=== PATIENT | female | born 1985 | race Caucasian/White ===

== ENCOUNTER 2017-07-09 17:26 | Emergency (ER) | END 2017-07-09 23:09 | disposition home or self-care (01) ==

== ENCOUNTER 2017-07-23 11:13 | Emergency (ER) | END 2017-07-23 13:08 | disposition home or self-care (01) ==

== ENCOUNTER 2018-08-26 19:20 | Emergency (ER) | payer MEDICAID, OTHER ==
[~2018-08-26] VITALS: Ht 162.6 cm; Wt 89.0 kg
[~2018-08-26 19:20] MED LIST: ACET325T33 PO; GUAI5SYR2 PO; IBUP-1542 PO; METH500T PO; NAPR-985 PO
[2018-08-26 19:36] VITALS: BP 122/69; PULSE 92; RESP 20; Ht 162.6 cm; Wt 89.0 kg
[2018-08-26] MEDS ORDERED: IBUPROFEN 600 MG TAB PO ONE (21:30)
[2018-08-26] MEDS ORDERED: IBUP-1542 PO (22:46)
--- NOTE | 2018-08-26 23:08 | ERD ---
ER Documentation Chief Complaint Chief Complaint L ankle pain/swelling- fall [place] 5 [place] HPI This is a 33-year-old female presents to the ED complaining of left ankle pain and swelling status post trip and fall at the beach 5 days ago. Patient states pain is worse when bearing weight. She reports ankle swelling. She denies any numbness, Renea, focal weakness. States pain has now started to radiate towards her left knee. No lacerations. No other complaints. ROS All systems reviewed and are negative except as per history of present illness. Medications Home Meds Active Scripts Ibuprofen* (Motrin*) 600 Mg Tab, 600 MG PO Q6H PRN for PAIN AND OR ELEVATED TEMP, #30 TAB Prov:HUBERTIGRNICK DONAHUEC 08/26/18 Guaifenesin-Dextromethorphan* (Robitussin* DM) 100MG/10MG/5ML Syrup, 5 ML PO Q4H PRN for COUGH, #100 ML Prov:VALENTINO MCDOWELL PA-C 07/23/17 Ibuprofen* (Motrin*) 600 Mg Tab, 600 MG PO Q6, #30 TAB Prov:VALENTINO MCDOWELL PA-C 07/23/17 Acetaminophen* (Tylenol*) 325 Mg Tablet, 2 TAB PO Q6 PRN for PAIN AND OR ELEVATED TEMP, #20 TAB Prov:VALENTINO MCDOWELL PA-C 07/23/17 Methocarbamol* (Robaxin*) 500 Mg Tab, 500 MG PO Q6 for 3 Days, #12 TAB Prov:ROYAL,ALONZO 07/09/17 Naproxen* (Naprosyn*) 500 Mg Tablet, 500 MG PO BID PRN for PAIN AND/OR INFLAMMATION for 10 Days, #20 TAB Prov:ROYAL,ALONZO 07/09/17 Allergies Allergies: Coded Allergies: No Known Allergy (Unverified , 08/26/18) PMhx/Soc Medical and Surgical Hx: pt denies Medical Hx, pt denies Surgical Hx Hx Alcohol Use: No Hx Substance Use: No Hx Tobacco Use: No Smoking Status: Never smoker Physical Exam Vitals Vital Signs Date Temp Pulse Resp B/P (MAP) Pulse Ox O2 O2 Flow FiO2 Time Delivery Rate 08/26/18 99.1 92 20 122/69 99 19:36 (86) Physical Exam Const: No acute distress Head: Atraumatic Eyes: Normal Conjunctiva ENT: Normal External Ears, Nose and Mouth. Neck: Full range of motion. No meningismus. Skin: No petechiae or rashes Back: No midline or flank tenderness Lower Extremity -left: Skin: No laceration Compartments: Soft Motor: + Pain with range of motion of the ankle. Full range of motion of the knee and toes. Sensation: Intact to light touch FDWS/MF/LF/P surfaces. Bones: + Tenderness to palpation along the left lateral malleolus with soft tissue swelling. Nontender knee and foot Joints: No effusion or laxity Pulses/Perfusion: 2+ DP, Capillary refill < 2 seconds Neur: Awake and alert Psych: Normal Mood and Affect Results 24 hrs Current Medications Medications Dose Sig/Tom Start Time Status Last (Trade) Ordered Route PRN Stop Time Admin Dose Reason Admin Ibuprofen 600 mg ONCE ONCE 08/26/18 DC 08/26/18 (Motrin) PO 21:30 21:37 08/26/18 21:31 Procedures/MDM LABS & DIAGNOSTIC IMAGING: PROCEDURE: XR Ankle. CLINICAL INDICATION: Pain TECHNIQUE: AP, oblique and lateral views of the left ankle were performed. COMPARISON: None. FINDINGS: There is normal mineralization and alignment. No fracture or osseous lesion is identified. The joints are normal. No soft tissue abnormality is present. IMPRESSION: Unremarkable exam. PROCEDURE: XR foot CLINICAL INDICATION: Pain. TECHNIQUE: AP, oblique and lateral views of the left foot were performed. COMPARISON: None. FINDINGS: There is normal mineralization and alignment. No fracture or osseous lesion is identified. The joints are normal. The soft tissues are unremarkable. IMPRESSION: Unremarkable foot. PROCEDURES: Splint Assessment: Neurovascularly intact post splint placement with good fit. ED COURSE: The patient was given Motrin The medication was well tolerated and the patient had market improvement in symptoms. The patient remained stable throughout ED course. MEDICAL DECISION MAKIN-year-old female presents with left ankle pain status post [place] the beach. X-ray as above is negative for any acute fracture or d islocation however I cannot rule out ligamentous injury. Copies of these results were given to patient. She was placed in a splint for comfort and given crutches. Recommend repeat imaging if still having significant pain in 1 week. No evidence of compartment syndrome, neurologic injury, vascular injury, open joint, open fracture, tendon laceration, or foreign body. Follow with PCP in 2 days, return here for new or worsening symptoms. PRESCRIPTIONS: Jorge Arin SPECIALIST FOLLOW UP RECOMMENDED: None Patient has been advised to follow up with primary care in 1-2 days. Departure Diagnosis: Primary Impression: Ankle injury Condition: Stable Patient Instructions: Treating Ankle Sprains Referrals: [facility] [place] YOU HAVE RECEIVED A MEDICAL SCREENING EXAM AND THE RESULTS INDICATE THAT YOU DO NOT HAVE A CONDITION THAT REQUIRES URGENT TREATMENT IN THE EMERGENCY DEPARTMENT. FURTHER EVALUATION AND TREATMENT OF YOUR CONDITION CAN WAIT UNTIL YOU ARE SEEN IN YOUR DOCTORS OFFICE WITHIN THE NEXT 1-2 DAYS. IT IS YOUR RESPONSIBILITY TO MAKE AN APPOINTMENT FOR FOLOW-UP CARE. IF YOU HAVE A PRIMARY DOCTOR --you should call your primary doctor and schedule an appointment IF YOU DO NOT HAVE A PRIMARY DOCTOR YOU CAN CALL OUR PHYSICIAN REFERRAL HOTLINE AT IF YOU CAN NOT AFFORD TO SEE A PHYSICIAN YOU CAN CHOSE FROM THE FOLLOWING [facility] [address] [facility] [address] [facility] [address] [facility]. [facility] [address] [facility] [address] [facility] [address] [facility]. [facility] [address] [facility]. [facility] YOU HAVE RECEIVED A MEDICAL SCREENING EXAM AND THE RESULTS INDICATE THAT YOU DO NOT HAVE A CONDITION THAT REQUIRES URGENT TREATMENT IN THE EMERGENCY DEPARTMENT. FURTHER EVALUATION AND TREATMENT OF YOUR CONDITION CAN WAIT UNTIL YOU ARE SEEN IN YOUR DOCTORS OFFICE WITHIN THE NEXT 1-2 DAYS. IT IS YOUR RESPONSIBILITY TO MAKE AN APPOINTMENT FOR FOLOW-UP CARE. IF YOU HAVE A PRIMARY DOCTOR --you should call your primary doctor and schedule and appointment IF YOU DO NOT HAVE A PRIMARY DOCTOR YOU CAN CALL OUR PHYSICIAN REFERRAL HOTLINE AT . IF YOU CAN NOT AFFORD TO SEE A PHYSICIAN YOU CAN CHOSE FROM THE FOLLOWING [facility] INSTITUTIONS: [facility] [address] [address] [facility] [address] [place] [address] [facility] [address] [place] [address] [facility]SPECIALTIES Additional Instructions: Recommend resting, icing, compression, elevation for the next 24-48 hours. You may continue with the Ben wrap, and crutches and increase weightbearing as tolerated. X-ray is negative for any fracture however I cannot rule out a ligamentous injury. If you are still having significant pain after 1 week., Please see your regular doctor for repeat x-rays. Return here for any new or worsening symptoms. NICK SOLARES PA-C Aug 26, 2018 23:05
== END 2018-08-26 23:23 | disposition home or self-care (01) ==
LOC: FTE 19:20
DX: S99.912A Unspecified injury of left ankle, initial encounter (principal); W01.0XXA Fall on same level from slipping, tripping and stumbling without subsequent striking against object, initial encounter; Y92.832 Beach as the place of occurrence of the external cause
CPT/HCPCS: 29515; 73610; 73630; Z7502; Z7610